=== PATIENT | female | born 1935 | race Caucasian/White ===

== ENCOUNTER 2016-10-27 21:00 | Emergency (ER) | payer MEDICARE, OTHER ==
[~2016-10-27] VITALS: Ht 160 cm; Wt 72.7 kg
[2016-10-27] MEDS ORDERED: HYDR200T3 PO (21:14)
[2016-10-27] MEDS ORDERED: HYDR12.55 PO (21:14)
[2016-10-27] MEDS ORDERED: MAXA10TA14 PO (21:14)
[2016-10-27] MEDS ORDERED: FROV2.5T4 PO (21:14)
[2016-10-27] MEDS ORDERED: CELE1CAP4 PO (21:14)
[2016-10-27] MEDS ORDERED: ECOT81TA5 PO (21:14)
[2016-10-27] MEDS ORDERED: LEVO100T5 PO (21:14)
[2016-10-27] MEDS ORDERED: SULF500T2 PO (21:14)
[2016-10-27] MEDS ORDERED: ACETAMINOPH W/CODEINE #3 TAB UD As Ordered ONE (21:43)
[2016-10-27 22:45] VITALS: BP 141/81
[2016-10-27] MEDS ORDERED: ACETAMINOPH W/CODEINE #3 TAB UD PO ONE (22:45)
--- NOTE | 2016-10-28 08:56 | REP ---
RIGHT KNEE, COMPLETE: 10/27/2016 CLINICAL HISTORY: Trauma, knee pain. FINDINGS: Five views are provided. There is mild tricompartment osteoarthritis. I see no definite joint effusion, fracture or loose body. There is some minimal chondrocalcinosis of the lateral joint compartment. No loose body or osteochondral defect. No definite avulsion. IMPRESSION: 1. Demineralization and some degenerative changes with chondrocalcinosis in the lateral joint compartment. No fracture, joint effusion or loose body. Signed by Randy Jones MD 10/28/2016 09:13 P
--- NOTE | 2016-10-28 08:57 | REP ---
RIGHT TIBIA-FIBULA SERIES: 10/27/2016 COMPARISON: right knee series this same date. FINDINGS: Trauma. Patient fell. Four views of the tibia and fibula to include the entire lower leg shows some soft tissue swelling pretibial region about the tibial tubercle and just below it. However, there is no visible or displaced fracture, avulsion, focal bone lesion or foreign body. Minor degenerative changes at the knee and ankle. IMPRESSION: 1. Pretibial swelling about the tibial tubercle and just below without visible or displaced fracture of the tibia or fibula. Signed by Randy Jones MD 10/28/2016 09:13 P
== END 2016-10-27 22:47 | disposition home or self-care (01) ==
LOC: M ED 21:00
DX: M11.261 Other chondrocalcinosis, right knee (principal); S80.11XA Contusion of right lower leg, initial encounter; W10.9XXA Fall (on) (from) unspecified stairs and steps, initial encounter; Y92.019 Unspecified place in single-family (private) house as the place of occurrence of the external cause; Y93.89 Activity, other specified; Y99.8 Other external cause status; I10 Essential (primary) hypertension; E03.9 Hypothyroidism, unspecified; M06.9 Rheumatoid arthritis, unspecified; Z90.79 Acquired absence of other genital organ(s); Z90.49 Acquired absence of other specified parts of digestive tract; Z79.82 Long term (current) use of aspirin; Z79.899 Other long term (current) drug therapy